=== PATIENT | female | born 1970 | race Caucasian/White ===

== ENCOUNTER 2018-04-22 21:26 | Emergency (ER) | payer SELFPAY ==
--- NOTE | 2018-04-22 21:29 | ER Report ---
History and Physical Time Seen By MD: 21:28 HPI/ROS CHIEF COMPLAINT: Syncope HISTORY OF PRESENT ILLNESS: 48-year-old female brought in by EMS from a bar where she was consuming alcoholic beverages. She states she had 3-4 beers. Earlier in the day. She consumed a gummy which she thought may have had cannabis in it. She was caught by her friends that she passed out. Of late to the floor. She responded shortly thereafter. She had some shaking motion, but was not postictal. She was not incontinent of stool or urine. There were no tongue bite singleton. Patient alert and oriented 3 now. She refused treatment by EMS. Patient denies recent illness, fever, chills, cough or sore throat. Patient denies dysuria. REVIEW OF SYSTEMS: Respiratory: No cough, no dyspnea. Cardiovascular: No chest pain, no palpitations. Gastrointestinal: No vomiting, no abdominal pain. Musculoskeletal: No back pain. Allergies: Coded Allergies: No Known Drug Allergies (Unverified , 04/22/18) Home Meds Reported Medications Escitalopram Oxalate (LEXAPRO) 20 Mg Tablet, 20 MG PO QDAY, TAB 04/22/18 Reviewed Nurses Notes: Yes Old Medical Records Reviewed: Yes Constitutional Vital Sign - Last 24 Hours 04/22/18 04/22/18 21:28 22:30 Temp 98.2 Pulse 64 Resp 18 B/P (MAP) 97/63 105/72 (83) Pulse Ox 91 O2 Delivery Room Air Physical Exam Vital signs stable, afebrile, pulse ox normal. General Appearance: The patient is alert, has no immediate need for airway protection and no current signs of toxicity. HEENT: Pupils equal and round no injection. Oropharynx without trauma Respiratory: Chest is non tender, lungs are clear to auscultation. Cardiac: regular rate and rhythm Gastrointestinal: Abdomen is soft and non tender, no masses, bowel sounds normal. Musculoskeletal: Neck: Neck is supple and non tender. Extremities have full range of motion and are non tender. Skin: No rashes or lesions. DIFFERENTIAL DIAGNOSIS: After history and physical exam differential diagnosis was considered for syncope including but not limited to vasovagal syncope, arrhythmia, dehydration, and blood loss. Medical Decision Making EKG/Imaging EKG Interpretation 12 lead EK Rhythm: normal sinus rhythm with borderline first-degree AV block [place]: normal QRS: normal ST segments: normal, no evidence of ischemia or dysrhythmia ED Course/Re-evaluation ED Course Patient was admitted to an examination room. H&P was done. The differential diagnosis was considered. Patient's vital signs are stable. An EKG was performed which was unremarkable. Patient declines any further care. She was offered IV and blood diagnostic test. Patient's discharged home with caution to increase her fluid intake. Patient likely has syncope secondary to alcohol and cannabis use. Decision to Disposition Date: Apr 22, 2018 Decision to Disposition Time: 22:10 Depart Departure Latest Vital Signs Vital Signs Date Time Temp Pulse Resp B/P (MAP) Pulse Ox O2 Delivery O2 Flow Rate FiO2 04/22/18 22:30 105/72 (83) 04/22/18 21:28 98.2 64 18 91 Room Air Impression: Primary Impression: Syncope Additional Impression: Alcohol ingestion Condition: Improved Disposition: HOME OR SELF-CARE Patient Instructions: Syncope (ED) Additional Instructions: Drink plenty of fluids and stay well-hydrated Follow-up with your primary care doctor upon returning home Problem Qualifiers Primary Impression: Syncope Syncope type: unspecified Qualified Codes: R55 - Syncope and collapse ZAHRA MCKEON DO Apr 22, 2018 21:29
[2018-04-22] MEDS ORDERED: ESCI20TA38 PO (21:32)
[2018-04-22 22:30] VITALS: BP 105/72
--- NOTE | 2018-04-23 03:46 | EKG ---
FACILITY: [facility] [place] PATIENT NAME: CORINE YATES : [id number] MR: [id number]: [id number] EXAM DATE: ORDERING PHYSICIAN: ZAHRA MCKEON TECHNOLOGIST: VALENTINA Test Reason : NAUSEA, VOMITING Blood Pressure : / mmHG Vent. Rate : 062 BPM Atrial Rate : 062 BPM P-R Int : 228 ms QRS Dur : 084 ms QT Int : 438 ms P-R-T Axes : 026 069 055 degrees QTc Int : 444 ms Sinus rhythm with 1st degree AV block No acute appearing findings No previous ECGs available Confirmed by DONNA VIDALES ([id number] on 04/23/2018 5:51:38 AM Referred By: Confirmed By:DONNA VIDALES
== END 2018-04-22 22:33 | disposition home or self-care (01) ==
LOC: ER 21:39
DX: R55 Syncope and collapse (principal); F10.10 Alcohol abuse, uncomplicated; I44.0 Atrioventricular block, first degree
CPT/HCPCS: 93005; 99283

== ENCOUNTER → 2018-04-22 | Outpatient (CLI) | payer SELFPAY ==
[~2018-04-22] MED LIST: ESCI20TA38 PO
== END ==
LOC: AMB 21:07
PROVIDERS: ATTEND Nurse Practitioner
DX: R55 Syncope and collapse (principal); F12.90 Cannabis use, unspecified, uncomplicated
CPT/HCPCS: A0425; A0429